=== PATIENT | female | born 1950 | race Caucasian/White ===

== ENCOUNTER 2018-05-29 19:44 | Inpatient (IN) ==
[2018-05-29] MEDS ORDERED: Sod Chloride 0.9% Inj 1,000 ML IV.CONT SCH (20:00)
--- NOTE | 2018-05-29 20:07 | ED ---
HPI General Chief Complaint: Neuro Symptoms/Deficit Stated Complaint: Lft Side Facial Drip Time Seen by Provider: 05/29/18 19:53 Source: patient and EMS Mode of arrival: EMS Limitations: no limitations History of Present Illness Onset (ago): hour(s) (5+) Time: 20:00 Last Observed Normal: 14:15 Timing confirmed by: other (patient--spoke with friend by phone 2:15; spoke with 3:15 he complained of her having slurred speech) Location: speech and left face (facial droop) History of same: No Severity: moderate Quality: weak (facial droop) Relieving factors: none Exacerbating factors: none Context: sudden onset (onset while driving alone in car from [place] to [place]) On Anticoagulants: Yes (plavix aspirin) Associated symptoms: denies other symptoms Treatments Prior to Arrival: none Related Data Home Medications Medication Instructions Recorded Confirmed carvedilol 6.25 mg PO BID 05/29/18 05/29/18 clopidogrel [Plavix] 75 mg PO DAILY 05/29/18 05/29/18 diclofenac sodium [Voltaren] 1 applic TOPICAL DAILY 05/29/18 05/29/18 diphenoxylate-atropine [Lomotil] 1 tab PO Q6-8H PRN 05/29/18 05/29/18 escitalopram oxalate 10 mg PO DAILY 05/29/18 05/29/18 glimepiride 4 mg PO QAM 05/29/18 05/29/18 insulin aspart U-100 [Novolog 1 sliding scale dose SUB-Q UD 05/29/18 05/29/18 U-100 Insulin aspart] insulin glargine [Lantus U-100 50 unit SUB-Q DAILY 05/29/18 05/29/18 Insulin] levocetirizine 5 mg PO DAILY 05/29/18 05/29/18 lorazepam 1 tab PO DAILY 05/29/18 05/29/18 simvastatin 40 mg PO QPM 05/29/18 05/29/18 Allergies Allergy/AdvReac Type Severity Reaction Status Date / Time No Known Allergies Allergy Unverified 05/29/18 19:55 Review of Systems ROS: all other systems reviewed are negative PMFSH History History Provided By: Patient (diabetes; cad w/ 4vss bypass) Medical History Medical History Hx of diabetes mellitus (Acute) Surgical History Surgical History Hx of heart bypass surgery (Acute) Social History Social History Substance History: No History of Abuse Smoking Status: Never smoker How Often Do You Have a Drink Containing Alcohol: Never Recent Travel in [facility] within the Last 8 Weeks: No Recent Out of Country Travel within the Last 8 Weeks: No Immunization History Tetanus Immunization: <5 Years Hx Influenza Vaccine This Season: No Exam Narrative Exam Narrative: GENERAL: Well-developed well-nourished female in no acute distress no respiratory distress GCS 15 SKIN: Focused skin assessment warm/dry. HEAD: Atraumatic. Normocephalic. EYES: Pupils equal and round. No scleral icterus. No injection or drainage. ENT: No nasal bleeding or discharge. Mucous membranes pink and moist. Left facial droop. NECK: Trachea midline. No JVD. CARDIOVASCULAR: Regular rate and rhythm. No murmur appreciated. RESPIRATORY: No accessory muscle use. Clear to auscultation. Breath sounds equal bilaterally. GASTROINTESTINAL: Abdomen soft, non-tender, nondistended. Hepatic and splenic margins not palpable. MUSCULOSKELETAL: No obvious deformities. No clubbing. No cyanosis. No edema. NEUROLOGICAL: Awake and alert. No obvious cranial nerve deficits left facial droop. Motor grossly within normal limits. No pronator drift. No limb ataxia. Mild slurring of speech. PSYCHIATRIC: Appropriate mood and affect; insight and judgment normal. Course Consultations Consultation #1: discussed with retail parts professional Neurologist Dr Castellano --not tpa candidate --does not recommend cta or stat mr --will see in consultation change to aspirin 81 to 325 Initial Documented Vital Signs Temperature 97.9 F 05/29/18 19:50 Pulse Rate 80 05/29/18 19:50 Respiratory Rate 05/29/18 19:50 Blood Pressure 120/74 05/29/18 19:50 Pulse Oximetry 97 05/29/18 19:50 Last Documented Vital Signs Temperature 97.9 F 05/29/18 19:50 Pulse Rate 80 05/29/18 19:50 Respiratory Rate 17 05/29/18 19:50 Blood Pressure 120/74 05/29/18 19:50 Pulse Oximetry 97 05/29/18 19:57 NIH Stroke Scale NIH Stroke Scale Level of Consciousness: 0-Alert Orientation Questions: 0-Answers both correct Responds to Commands: 0-Both tasks correct Gaze Eye Movement: 0-Horizontal movement WNL Visual [place]: 0-No visual field defect Facial Movement: 2-Partial facial palsy Motor Functions Arm LEFT: 0-No drift Motor Functions Arm RIGHT: 0-No drift Motor Functions Leg LEFT: 0-No drift Motor Functions Leg RIGHT: 0-No drift Limb Ataxia: 0-No ataxia Sensory Loss: 0-No sensory loss Best Language: 0-Normal Articulation: 1-Mild dysarthia Extinction or Inattention Sensory: 0-Absent Total: 3 Medical Decision Making MDM Narrative Medical decision making narrative: 67 year old female with left facial droop and slurred speech since sometime after 2:15 pm ( normal speech on phone with friend) and 3:10 pm (slurred speech per by phone) onset. At 8:15 has been present reports that he talk to her at 310 and noticed for the first time she had slurring of speech. He had spoken to her prior to this around 11 no speech abnormality noted at that time. CT brain noncontrast reveals no acute process per reading radiologist chest x- ray is unremarkable EKG is sinus rhythm rate [address] elevation injury pattern or ectopy noted age-indeterminate anterior infarct; lab values grossly within normal range except for random glucose of 142 and troponin I of 0.07 which is elevated. Patient denies any chest pain shortness of breath sweats nausea vomiting referred neck jaw back shoulder arm pain. Call placed to medicine service for admission, discussed with Dr. Prado. Medical Screen Exam Complete: Yes Emergency Medical Condition: Yes Differential Diagnosis Differential Diagnosis: CVA, TIA, Arenas's palsy, arrhythmia, uncontrolled diabetes, acs Medical Records Medical records reviewed: Yes I reviewed the patient's medical records. none prior Lab Data Lab results reviewed: Yes I reviewed the patient's lab results. Result diagrams: 05/29/18 20:20 05/29/18 20:20 Lab Results 05/29/18 05/29/18 05/29/18 Range/Units 19:57 20:00 20:20 CBC w Diff Auto diff final WBC 6.1 (4.0-11.0) th/mm3 RBC 4.54 (4.00-5.30) mil/mm3 Hgb 12.3 (11.6-15.3) gm/dL Hct 37.5 (35.0-46.0) % MCV 82.6 (80.0-100.0) fL MCH 27.0 (27.0-34.0) pg MCHC 32.7 (32.0-36.0) % RDW 14.4 (11.6-17.2) % Plt Count 317 (150-450) th/mm3 MPV 9.1 (7.0-11.0) fL Neut % (Auto) 65.2 (16.0-70.0) % Lymph % (Auto) 26.2 (9.0-44.0) % [place] % (Auto) 6.4 (0.0-8.0) % Eos % (Auto) 1.5 (0.0-4.0) % Baso % (Auto) 0.7 (0.0-2.0) % Neut # (Auto) 4.0 (1.8-7.7) th/mm3 Lymph # (Auto) 1.6 (1.0-4.8) th/mm3 [place] # (Auto) 0.4 (0.0-0.9) th/mm3 Eos # (Auto) 0.1 (0.0-0.4) th/mm3 Baso # (Auto) 0.0 (0.0-0.2) th/mm3 WBC Differential . Differential Comment . PT (9.8-11.6) sec INR Ratio APTT (24.3-30.1) sec Sodium (136-145) meq/L Potassium (3.5-5.1) meq/L Chloride (98-107) meq/L Carbon Dioxide (21.0-32.0) meq/L Anion Gap (5-15) meq/L BUN (7-18) mg/dL Creatinine (0.50-1.00) mg/dL Estimated GFR (>89) mL/min POC Glucose 161 H (68-110) mg/dl Random Glucose (74-106) mg/dL Calcium (8.5-10.1) mg/dL Total Creatine Kinase (26-192) U/L CK-MB (CK-2) (0.5-3.6) ng/mL Troponin I (0.02-0.05) ng/mL Urine Color Yellow (Yellw/Straw) Urine Clarity Clear (Clear) Urine pH 5.5 (5.0-8.5) Ur Specific [place] Less/equal 1.005 (1.002-1.035) Urine Protein Trace (Neg-Trace) mg/dL Urine Glucose (UA) 1000 or greater H (Negative) mg/dL Urine Ketones Negative (Negative) mg/dL Urine Occult Blood Trace (Negative) Urine Nitrate Negative (Negative) Urine Bilirubin Negative (Negative) Urine Urobilinogen 0.2 (Less than 2) mg/dL Ur Leukocyte Esterase Negative (Negative) Urine WBC 0-5 (0-5) /hpf Ur Squamous Epith Cells 0-5 (0-5) /hpf Micro UA Comment Culture not ind Ur Microscopic Review Microscopic reviewed Urine Culture Comments Culture not ind 05/29/18 05/29/18 05/29/18 Range/Units 20:20 20:20 21:25 CBC w Diff WBC (4.0-11.0) th/mm3 RBC (4.00-5.30) mil/mm3 Hgb (11.6-15.3) gm/dL Hct (35.0-46.0) % MCV (80.0-100.0) fL MCH (27.0-34.0) pg MCHC (32.0-36.0) % RDW (11.6-17.2) % Plt Count (150-450) th/mm3 MPV (7.0-11.0) fL Neut % (Auto) (16.0-70.0) % Lymph % (Auto) (9.0-44.0) % [place] % (Auto) (0.0-8.0) % Eos % (Auto) (0.0-4.0) % Baso % (Auto) (0.0-2.0) % Neut # (Auto) (1.8-7.7) th/mm3 Lymph # (Auto) (1.0-4.8) th/mm3 [place] # (Auto) (0.0-0.9) th/mm3 Eos # (Auto) (0.0-0.4) th/mm3 Baso # (Auto) (0.0-0.2) th/mm3 WBC Differential Differential Comment PT 9.4 L (9.8-11.6) sec INR 0.9 Ratio APTT 23.7 L (24.3-30.1) sec Sodium 140 (136-145) meq/L Potassium 3.6 (3.5-5.1) meq/L Chloride 107 (98-107) meq/L Carbon Dioxide 23.7 (21.0-32.0) meq/L Anion Gap 9 (5-15) meq/L BUN 15 (7-18) mg/dL Creatinine 0.97 (0.50-1.00) mg/dL Estimated GFR 58 L (>89) mL/min POC Glucose 62 L (68-110) mg/dl Random Glucose 142 H (74-106) mg/dL Calcium 8.7 (8.5-10.1) mg/dL Total Creatine Kinase 105 (26-192) U/L CK-MB (CK-2) 1.6 (0.5-3.6) ng/mL Troponin I 0.07 H (0.02-0.05) ng/mL Urine Color (Yellw/Straw) Urine Clarity (Clear) Urine pH (5.0-8.5) Ur Specific [place] (1.002-1.035) Urine Protein (Neg-Trace) mg/dL Urine Glucose (UA) (Negative) mg/dL Urine Ketones (Negative) mg/dL Urine Occult Blood (Negative) Urine Nitrate (Negative) Urine Bilirubin (Negative) Urine Urobilinogen (Less than 2) mg/dL Ur Leukocyte Esterase (Negative) Urine WBC (0-5) /hpf Ur Squamous Epith Cells (0-5) /hpf Micro UA Comment Ur Microscopic Review Urine Culture Comments Imaging Data Radiologist's impression: Chest X-Ray 05/29/18 19:57 CONCLUSION: No acute cardiopulmonary disease. Head CT 05/29/18 19:57 CONCLUSION: Unremarkable study. . ECG Data EKG Prior to Arrival: No Prior ECG tracings: not available for review Interpretation: EKG normal sinus rhythm rate [address] elevation injury pattern or ectopy noted; no comparison EKG Discharge Plan Discharge Disposition Patient Disposition: 30 Still Patient Discharge Condition Condition: Stable Discharge Details Diagnosis: CVA (cerebrovascular accident), Elevated troponin I level Physicians Team ED Provider: Crys Burks Primary Care Provider: Primary Care GarrickiArleen Rxs /Orders / Referrals /Forms Prescriptions: No Action carvedilol 6.25 mg Tablet 6.25 mg PO BID RF: 0 clopidogrel [Plavix] 75 mg Tablet 75 mg PO DAILY RF: 0 lorazepam 0.5 mg Tablet 1 tab PO DAILY RF: 0 insulin glargine [Lantus U-100 Insulin] 100 unit/mL Solution 50 unit SUB-Q DAILY RF: 0 diphenoxylate-atropine [Lomotil] 2.5-0.025 mg Tablet 1 tab PO Q6-8H PRN (Reason: Diarrhea) RF: 0 simvastatin 40 mg Tablet 40 mg PO QPM RF: 0 insulin aspart U-100 [Novolog U-100 Insulin aspart] 100 unit/mL Solution 1 sliding scale dose SUB-Q UD RF: 0 glimepiride 4 mg Tablet 4 mg PO QAM RF: 0 escitalopram oxalate 10 mg Tablet 10 mg PO DAILY RF: 0 levocetirizine 5 mg Tablet 5 mg PO DAILY RF: 0 diclofenac sodium [Voltaren] 1 % Gel 1 applic Topical DAILY RF: 0 Status ED Status: With Doctor
--- NOTE | 2018-05-29 20:26 | CT ---
EXAM DATE: 05/29/2018 8:18 PM EDT AGE/SEX: 67 years / Female INDICATIONS: Left sided facial droop, slurred speech. Symptoms started around 15:00 today. CLINICAL DATA: This is the patient's initial encounter. Patient reports that signs and symptoms have been present for 1 day and indicates a pain score of 0/10. MEDICAL/SURGICAL HISTORY: Diabetes. CABG. RADIATION DOSE: 58.85 CTDI (mGy) COMPARISON: No prior exams available for comparison. TECHNIQUE: CT of the head without contrast. Using automated exposure control and adjustment of the mA and/or kV according to patient size, radiation dose was kept as low as reasonably achievable to ob tain optimal diagnostic quality images. DICOM format image data is available electronically for revi ew and comparison. FINDINGS: There is no evidence for intracranial hemorrhage, mass effect, mass lesions, edema, or extra-axial fl uid collections. The visualized bony structures appear intact. The ventricles are normal size for t he patient's age. There are no signs of acute infarction for technique. CONCLUSION: Unremarkable study. . Electronically signed by: Jaime Todd MD 05/29/2018 8:25 PM EDT
[2018-05-29] MEDS ORDERED: Aspirin 325 MG Tablet PO ONE (20:28)
[2018-05-29 20:37] LABS: Baso % (Auto) 0.7 % (0.0-2.0); Eos # (Auto) 0.1 th/mm3 (0.0-0.4); Eos % (Auto) 1.5 % (0.0-4.0); Hematocrit 37.5 % (35.0-46.0); Hemoglobin 12.3 gm/dL (11.6-15.3); Lymph # (Auto) 1.6 th/mm3 (1.0-4.8); Lymph % (Auto) 26.2 % (9.0-44.0); Mean Corpuscular HGB Conc 32.7 % (32.0-36.0); Mean Corpuscular Volume 82.6 fL (80.0-100.0); Mean Platelet Volume 9.1 fL (7.0-11.0); Mono # (Auto) 0.4 th/mm3 (0.0-0.9); Mono % (Auto) 6.4 % (0.0-8.0); Neut % (Auto) 65.2 % (16.0-70.0); Platelet Count 317 th/mm3 (150-450); Red Blood Count 4.54 mil/mm3 (4.00-5.30); Red Cell Distribution Width 14.4 % (11.6-17.2); White Blood Count 6.1 th/mm3 (4.0-11.0)
[2018-05-29 20:38] LABS: Bilirubin,Urine Negative (Negative); Clarity,Urine Clear (Clear); Color,Urine Yellow (Yellw/Straw); Leukocyte Esterase,Urine Negative (Negative); Nitrite,Urine Negative (Negative); PH,Urine 5.5 (5.0-8.5); Specific Gravity,Urine Less/Equal 1.005 (1.002-1.035); Urobilinogen,Urine 0.2 mg/dL (Less than 2)
[2018-05-29 20:47] LABS: Squamous Epithelial Cell,Urine 0-5 /hpf (0-5); WBC,Urine 0-5 /hpf (0-5)
[2018-05-29 20:51] LABS: Chloride 107 meq/L (98-107); Potassium 3.6 meq/L (3.5-5.1); Sodium 140 meq/L (136-145)
[2018-05-29 20:54] LABS: Anion Gap 9 meq/L (5-15); Blood Urea Nitrogen 15 mg/dL (7-18); Calcium 8.7 mg/dL (8.5-10.1); Carbon Dioxide 23.7 meq/L (21.0-32.0); Glucose,Random 142 mg/dL (74-106)
[2018-05-29 20:57] LABS: Activated Partial Thrombo Time 23.7 sec (24.3-30.1); INR 0.9 Ratio; Prothrombin Time 9.4 sec (9.8-11.6)
--- NOTE | 2018-05-29 20:57 | XR ---
EXAM DATE: 05/29/2018 8:49 PM EDT AGE/SEX: 67 years / Female INDICATIONS: Cough. CLINICAL DATA: This is the patient's initial encounter. Patient reports that signs and symptoms have been present for 1 day and indicates a pain score of 0/10. MEDICAL/SURGICAL HISTORY: . Diabetes. CABG. COMPARISON: No prior exams available for comparison. FINDINGS: The lungs are clear without infiltrate, nodule, or mass. There is no appreciable pleural effusion for technique. Heart and mediastinum are unremarkable. There is evidence for prior median sternotomy. CONCLUSION: No acute cardiopulmonary disease. Electronically signed by: Jaime Todd MD 05/29/2018 8:56 PM EDT
[2018-05-29 20:58] LABS: Glomerular Filtration Rate 58 mL/min (>89)
[2018-05-29 21:01] LABS: Creatine Kinase 105 U/L (26-192)
[2018-05-29 21:02] LABS: Troponin I 0.07 ng/mL (0.02-0.05)
[2018-05-29 21:13] LABS: Creatine Kinase MB 1.6 ng/mL (0.5-3.6)
[2018-05-29] MEDS ORDERED: Dextrose 50% in Water 50 ML Vial IV.PUSH PRN (21:44)
--- NOTE | 2018-05-30 09:59 | MR ---
EXAM DATE: 05/30/2018 9:50 AM EDT AGE/SEX: 67 years / Female INDICATIONS: CVA. Slurred speech. Left facial droop. CLINICAL DATA: This is the patient's initial encounter. Patient reports that signs and symptoms have been present for 1 day and indicates a pain score of 0/10. MEDICAL/SURGICAL HISTORY: Cardiovascular disease. Diabetes mellitus type II. CABG. Coronary a rtery stent. COMPARISON: [facility], MR HEAD W/O CONTRAST, 05/30/2018. [facility], CT HEAD W/O CONTRAST, 05/29/2018. . TECHNIQUE: 3D [id number] MRA was performed. Source images, multiplanar STS MIP, and 3D volum e MIP reconstructions were reviewed. FINDINGS: There is excellent visualization of the major intracranial arteries out to the second-order branch ve ssels. There is no evidence for aneurysm, vessel truncation or stenosis, and no evidence for vascula r malformation. CONCLUSION: 1. Negative MRA [place] ([place]) non contrast. Electronically signed by: Dylan Melton MD 05/30/2018 9:58 AM EDT
--- NOTE | 2018-05-30 09:59 | MR ---
EXAM DATE: 05/30/2018 9:50 AM EDT AGE/SEX: 67 years / Female INDICATIONS: CVA. Left facial droop. Slurred speech. CLINICAL DATA: This is the patient's initial encounter. Patient reports that signs and symptoms have been present for 1 day and indicates a pain score of 0/10. MEDICAL/SURGICAL HISTORY: Cardiovascular disease. Diabetes mellitus type II. CABG. Coronary a rtery stent. COMPARISON: [facility], MRA HEAD W/O CONTRAST, 05/30/2018. [facility], CT HEAD W/O CONTRAST, 05/29/2018. . TECHNIQUE: Multiplanar, multisequence examination of the brain was performed without contrast. FINDINGS: Diffusion weighted images demonstrate abnormal diffusion hyperintensity in the right frontal cortex. There is corresponding increased FLAIR signal. This is characteristic of an area of acute infarction. There are scattered foci of increased FLAIR signal in the periventricular white matter and bilateral centrum semiovale most characteristic of chronic microvascular ischemic disease. There is no intracr anial hemorrhage or mass. CONCLUSION: 1. Right frontal infarct. Electronically signed by: Dylan Melton MD 05/30/2018 9:58 AM EDT
[2018-05-30] MEDS: Insulin NovoLOG Aspart Correctional Sugar Inj SQ SCH ×4 (10:07→21:12)
--- NOTE | 2018-05-30 10:14 | P.HP ---
History of Present Illness Primary Care Physician: No Primary Care Physician Chief Complaint: Slurred speech, facial droop History of Present Illness: 67-year-old female with known history of heart disease, cardiac stenting, coronary bypass surgery who presented to the hospital because of acute neurological deficits. Patient states that she is driving down here from [facility] in order to stay in a condo, during her trip at approximately 315 she noticed that she was having some slurred speech and facial droop. She continue to drive down here and then approximately 5 PM once he got to the condo her gave her a aspirin, called the ambulance. Patient was brought to the emergency department for evaluation. Patient was outside the window for TPA administration. Patient was having slurred speech, left facial droop, numbness of the left hand. Patient denies any lower extremity involvement, denies any difficulty in walking, no visual deficits. Denies any headache. Patient initial CT was unremarkable. Patient was recommend admission for stroke workup. - Diagnosis (1) CVA (cerebrovascular accident) (2) Elevated troponin I level Inpatient Certification: I certify that the inpatient services were ordered in accordance with Medicare regulations governing the order. This includes certification that hospital inpatient services are reasonable and necessary and in the case of services not specified as inpatient-only under 42 CFR 419.22(n), that they are appropriately provided as inpatient services in accordance to with the 2-midnight benchmark under 43 CFR 412.3(e) Estimated Total Length of Stay (Days): 2 Plans for Post Hospital Care: Not yet determined Review of Systems All other systems reviewed negative except as stated in HPI Neurologic: Reports abnormal speech, Reports numbness PMFSH - History History Provided By: Patient - Medical History Medical History: Medical History (Last Updated 05/30/18 @ 09:52 by SONALI Lopez) History of diabetes mellitus History of heart disease Hyperlipidemia - Surgical History Surgical History: Surgical History (Last Updated 05/30/18 @ 09:52 by SONALI Lopez) History of cardiac catheterization History of coronary artery stent placement Hx of heart bypass surgery - Family History Family History: Family History (Last Updated 05/30/18 @ 09:54 by SONALI Lopez) Father History of congestive heart failure Mother History of diabetes mellitus - Tobacco History Second Hand Smoke Exposure: No Tobacco Use In Past 30 Days: No Smoking Status: Never smoker - Alcohol History How Often Do You Have a Drink Containing Alcohol: Monthly or less - Substance Use History Substance History: No History of Abuse - Travel History Recent Travel in the [place] Within the Last 8 Weeks: Yes Recent Travel Out of the Country Within the Last 8 Weeks: No - Immunization History Tetanus Immunization: <5 Years Hx Influenza Vaccine This Season: No Medications and Allergies Active Medications: Active Medications Aspirin (Aspirin) 325 mg PO DAILY DARRIAN Clopidogrel Bisulfate (Plavix) 75 mg PO DAILY [facility] Dextrose (D50w Vial) 50 ml IV.PUSH UNSCH PRN PRN Reason: PER HYPOGLYCEMIA PROTOCOL Enalaprilat (Vasotec Inj) 1.25 mg IV.PUSH Q4H PRN PRN Reason: For SBP > 220 or DBP > 120 Escitalopram Oxalate (Lexapro) 10 mg PO DAILY DARRIAN Glucagon (Glucagon Inj) 1 mg OTHER UNSCH PRN PRN Reason: for Hypoglycemia Protocol Sodium Chloride (Ns Inj) 1,000 mls @ 70 mls/hr IV.CONT .[id number] DARRIAN Stop: 05/30/18 10:17 Last Admin: 05/29/18 21:50 Dose: 70 mls/hr Insulin Aspart (Novolog Insulin Correctional Sugar Inj) 0 unit SQ ACHS DARRIAN; Protocol Non-Formulary Medication (Simvastatin [Simvastatin]) 40 mg PO QPM DARRIAN Pravastatin Sodium (Pravachol) 40 mg PO HS DARRIAN Sodium Chloride (Ns Flush) 2 ml IV.FLUSH BID DARRIAN Sodium Chloride (Ns Flush) 2 ml IV.FLUSH PRN PRN PRN Reason: FLUSH AFTER USING IV ACCESS Allergies Allergy/AdvReac Type Severity Reaction Status Date / Time No Known Allergies Allergy Unverified 05/29/18 19:55 Home Medications Medication Instructions Recorded Confirmed Type carvedilol 6.25 mg PO BID 05/29/18 05/29/18 History clopidogrel [Plavix] 75 mg PO DAILY 05/29/18 05/29/18 History diclofenac sodium [Voltaren] 1 applic TOPICAL DAILY 05/29/18 05/29/18 History diphenoxylate-atropine [Lomotil] 1 tab PO Q6-8H PRN 05/29/18 05/29/18 History escitalopram oxalate 10 mg PO DAILY 05/29/18 05/29/18 History glimepiride 4 mg PO QAM 05/29/18 05/29/18 History insulin aspart U-100 [Novolog 1 sliding scale dose SUB-Q UD 05/29/18 05/29/18 History U-100 Insulin aspart] insulin glargine [Lantus U-100 50 unit SUB-Q DAILY 05/29/18 05/29/18 History Insulin] levocetirizine 5 mg PO DAILY 05/29/18 05/29/18 History lorazepam 1 tab PO DAILY 05/29/18 05/29/18 History simvastatin 40 mg PO QPM 05/29/18 05/29/18 History Exam Vital signs: Vital Signs 05/29/18 19:50 05/29/18 19:57 05/29/18 21:30 Temperature 97.9 F Pulse Rate 80 78 Respiratory Rate 17 17 Blood Pressure 120/74 110/72 Pulse Oximetry 97 97 05/29/18 22:30 05/29/18 23:50 05/30/18 01:37 Temperature 96.8 F L Pulse Rate 82 81 74 Respiratory Rate 16 21 Blood Pressure 111/56 L 123/59 L Pulse Oximetry 98 96 05/30/18 04:00 05/30/18 07:28 Temperature 96.4 F L 97.3 F L Pulse Rate 82 83 Respiratory Rate 20 20 Blood Pressure 139/63 137/60 Pulse Oximetry 99 98 Intake & Output 05/29/18 05/30/18 05/30/18 18:59 06:59 18:59 Intake Total 0 / 0 Balance 0 / 0 Weight 86.8 kg Intake: Oral 0 / 0 Other: # Voids 2 Weight On Admission 86.6 kg Narrative: GENERAL: Well-developed, well-nourished, in no acute distress. alert and orientated HEENT: Head is normocephalic without any lesions or masses noted. Patient with obvious left facial droop. Eyes: Pupils equal round reactive to light. Extraocular muscles are intact. Conjunctivae were clear. Oropharyngeal: Pharynx without any erythema edema. Tongue is midline without deviation. Buccal mucosa is moist without any masses or lesions NECK: Supple without any masses. Trachea midline no deviation. No JVD, no bruits are appreciated CARDIAC: Regular rhythm, regular rate. S1/S2 are heard. No murmurs gallops or rubs. LUNGS: Clear to auscultation bilaterally. No wheeze, rhonchi or rales. No use of accessory muscles on inspiration or expiration. ABDOMEN: Soft, nontender. Nondistended. Bowel sounds heard in all 4 quadrants. No organomegaly or masses. Negative rebound, negative guarding EXTREMITIES: No edema, pulses are equal bilaterally. No cyanosis or clubbing NEUROLOGY: Mood and affect appear appropriate. Cranial nerves II through XII grossly intact. Muscle strength 5/5 in upper and lower extremities bilaterally. Deep tendon reflexes are 2+ in upper and lower extremities bilaterally. Speech is slurred Results - Labs CBC & Chem 7: 05/29/18 20:20 05/29/18 20:20 Labs: Laboratory Results - last 24 hr 05/29/18 05/29/18 05/29/18 19:57 20:00 20:20 CBC w Diff Auto diff final WBC 6.1 RBC 4.54 Hgb 12.3 Hct 37.5 MCV 82.6 MCH 27.0 MCHC 32.7 RDW 14.4 Plt Count 317 MPV 9.1 Neut % (Auto) 65.2 Lymph % (Auto) 26.2 Meagher % (Auto) 6.4 Eos % (Auto) 1.5 Baso % (Auto) 0.7 Neut # (Auto) 4.0 Lymph # (Auto) 1.6 Meagher # (Auto) 0.4 Eos # (Auto) 0.1 Baso # (Auto) 0.0 WBC Differential . Differential Comment . PT INR APTT Sodium Potassium Chloride Carbon Dioxide Anion Gap BUN Creatinine Estimated GFR POC Glucose 161 H Random Glucose Calcium Total Creatine Kinase CK-MB (CK-2) Troponin I Urine Color Yellow Urine Clarity Clear Urine pH 5.5 Ur Specific [place] Less/equal 1.005 Urine Protein Trace Urine Glucose (UA) 1000 or greater H Urine Ketones Negative Urine Occult Blood Trace Urine Nitrate Negative Urine Bilirubin Negative Urine Urobilinogen 0.2 Ur Leukocyte Esterase Negative Urine WBC 0-5 Ur Squamous Epith Cells 0-5 Micro UA Comment Culture not ind Ur Microscopic Review Microscopic reviewed Urine Culture Comments Culture not ind 05/29/18 05/29/18 05/29/18 20:20 20:20 21:25 CBC w Diff WBC RBC Hgb Hct MCV MCH MCHC RDW Plt Count MPV Neut % (Auto) Lymph % (Auto) Meagher % (Auto) Eos % (Auto) Baso % (Auto) Neut # (Auto) Lymph # (Auto) Meagher # (Auto) Eos # (Auto) Baso # (Auto) WBC Differential Differential Comment PT 9.4 L INR 0.9 APTT 23.7 L Sodium 140 Potassium 3.6 Chloride 107 Carbon Dioxide 23.7 Anion Gap 9 BUN 15 Creatinine 0.97 Estimated GFR 58 L POC Glucose 62 L Random Glucose 142 H Calcium 8.7 Total Creatine Kinase 105 CK-MB (CK-2) 1.6 Troponin I 0.07 H Urine Color Urine Clarity Urine pH Ur Specific [place] Urine Protein Urine Glucose (UA) Urine Ketones Urine Occult Blood Urine Nitrate Urine Bilirubin Urine Urobilinogen Ur Leukocyte Esterase Urine WBC Ur Squamous Epith Cells Micro UA Comment Ur Microscopic Review Urine Culture Comments 05/29/18 05/30/18 05/30/18 22:17 00:44 05:40 CBC w Diff WBC RBC Hgb Hct MCV MCH MCHC RDW Plt Count MPV Neut % (Auto) Lymph % (Auto) Meagher % (Auto) Eos % (Auto) Baso % (Auto) Neut # (Auto) Lymph # (Auto) Meagher # (Auto) Eos # (Auto) Baso # (Auto) WBC Differential Differential Comment PT INR APTT Sodium Potassium Chloride Carbon Dioxide Anion Gap BUN Creatinine Estimated GFR POC Glucose 107 Random Glucose Calcium Total Creatine Kinase CK-MB (CK-2) Troponin I 0.08 H 0.07 H Urine Color Urine Clarity Urine pH Ur Specific [place] Urine Protein Urine Glucose (UA) Urine Ketones Urine Occult Blood Urine Nitrate Urine Bilirubin Urine Urobilinogen Ur Leukocyte Esterase Urine WBC Ur Squamous Epith Cells Micro UA Comment Ur Microscopic Review Urine Culture Comments - Imaging Impressions Chest X-Ray 05/29/18 19:57 CONCLUSION: No acute cardiopulmonary disease. Head CT 05/29/18 19:57 CONCLUSION: Unremarkable study. . Head MRI 05/30/18 21:45 CONCLUSION: 1. Right frontal infarct. Head MRA 05/30/18 21:45 CONCLUSION: 1. Negative MRA Cow ([place]) non contrast. Caprini VTE Risk Assessment Caprini VTE Risk Assessment: Moderate/High Risk (score >= 2) Caprini Risk Assessment Model: Point Value = 1 Point Value = 2 Point Value = 3 Point Value = 5 Age 41-60 Minor surgery BMI > 25 kg/m2 Swollen legs Varicose veins or History of unexplained or recurrent spontaneous Oral contraceptives or hormone replacement Sepsis (< 1 month) Serious lung disease, including pneumonia (< 1 month) Abnormal pulmonary function Acute myocardial infarction Congestive heart failure (< 1 month) History of inflammatory bowel disease Medical patient at bed rest Age 61-74 Arthroscopic surgery Major open surgery (> 45 min) Laparoscopic surgery (> 45 min) Malignancy Confined to bed (> 72 hours) Immobilizing plaster cast Central venous access Age >= 75 History of VTE Family history of VTE Factor V Leiden Prothrombin [id number] Lupus anticoagulant Anticardiolipin antibodies Elevated serum homocysteine Heparin-induced thrombocytopenia Other congenital or acquired thrombophilia Stroke (< 1 month) Elective arthroplasty Hip, pelvis, or leg fracture Acute spinal cord injury (< 1 month) Prophylaxis Regimen: Total Risk Factor Score Risk Level Prophylaxis Regimen 0-1 Low Early ambulation 2 Moderate Order ONE of the following: *Sequential Compression Device (SCD) *Heparin 5000 units SQ BID 3-4 Higher Order ONE of the following medications: *Heparin 5000 units SQ TID *Enoxaparin/Lovenox 40 mg SQ daily (WT < 150 kg, CrCl > 30 mL/min) *Enoxaparin/Lovenox 30 mg SQ daily (WT < 150 kg, CrCl > 10-29 mL/min) *Enoxaparin/Lovenox 30 mg SQ BID (WT < 150 kg, CrCl > 30 mL/min) AND/OR *Sequential Compression Device (SCD) 5 or more Highest Order ONE of the following medications: *Heparin 5000 units SQ TID (Preferred with Epidurals) *Enoxaparin/Lovenox 40 mg SQ daily (WT < 150 kg, CrCl > 30 mL/min) *Enoxaparin/Lovenox 30 mg SQ daily (WT < 150 kg, CrCl > 10-29 mL/min) *Enoxaparin/Lovenox 30 mg SQ BID (WT < 150 kg, CrCl > 30 mL/min) AND *Sequential Compression Device (SCD) Assessment and Plan - Assessment (1) CVA (cerebrovascular accident) Code(s): I63.9 - Cerebral infarction, unspecified Status: Acute (2) Elevated troponin I level Code(s): R74.8 - Abnormal levels of other serum enzymes Status: Acute - Plan Acute cerebrovascular accident -Patient presented with neurological deficits of facial droop, slurred speech, left hand numbness -Patient was out of the range for any TPA administration -CT scan was unremarkable for any acute abnormality -Awaiting MRI, MRA of the brain, carotid ultrasound, echocardiogram -Further laboratory studies to include B12, folate, sed rate, TSH, lipid panel, hemoglobin A1c -Patient is already on Plavix, we will continue that with the addition of full dose aspirin -Obtain PT/OT/ST evaluations -Neurology consultation has been requested Elevated troponin -Could be demand ischemia from acute CVA, However patient does have history of coronary disease status post stenting and carotid bypass surgery. Patient is asymptomatic. Denies any chest pain, nausea, vomiting, diaphoresis, shortness of breath, dyspnea. -Patient cardiac enzymes were trended and appears to have plateaued with equivocal troponins of 0.08 -Initial EKG was reviewed by myself did show sinus rhythm with possible anterior myocardial infarction. Follow-up EKG shows sinus rhythm without any changes -Awaiting echocardiogram report -Patient is on aspirin, Plavix, statin, beta-stephenie -Myocardial perfusion study was performed and indicated Coronary artery disease, heart disease -Home medications have been continued DVT prevention -Sequential compression devices Discussed Condition With: Discussed with patient, nursing staff, Dr. Castellano neurology
[2018-05-30] MEDS: Escitalopram 10 MG Tablet PO SCH (10:31)
[2018-05-30] MEDS: Aspirin 325 MG Tablet PO SCH (10:31)
[2018-05-30] MEDS: Carvedilol 6.25 MG Tablet PO SCH ×2 (12:01→21:13)
[2018-05-30 12:04] LABS: Chol/HDL Ratio 3.56 Ratio; Folate 8.9 ng/mL (3.1-17.5); HDL Cholesterol 44.9 mg/dL (40.0-60.0)
[2018-05-30] MEDS ORDERED: Regadenoson Inj 0.4 MG/5 ML Syringe IV.PUSH ONE (12:52)
[2018-05-30 13:10] LABS: Hemoglobin A1c 9.6 % (4.3-6.0)
--- NOTE | 2018-05-30 13:43 | MB ---
cc: Elier Castellano MD, PhD DATE: 05/30/2018 REASON FOR CONSULTATION: Stroke. HISTORY OF PRESENT ILLNESS: Ms. Nevarez is a pleasant 67-year-old female with a history of coronary artery disease, diabetes and hypertension, who was driving down from [place], [place] yesterday, had sudden onset of slurring of her speech and left facial droop. She had some numbness in the arm and hand, as well. She presented to the emergency room. I spoke with Dr. Burks. By the time she got to the ER, she was out of the window for IV tPA. Given her minimal symptomatology, I felt that she was not a candidate for evaluation for interventional therapy. She normally takes Plavix 75 mg daily and aspirin 81 mg daily. I recommended increasing her aspirin dose to 325 mg daily. She did not have any atrial fibrillation. PAST MEDICAL HISTORY: She has history of diabetes, coronary artery disease with CABG procedure, coronary stents, hypertension. CURRENT MEDICATIONS: 1. Aspirin now changed to 325 mg daily. 2. Carvedilol 6.25 mg b.i.d. 3. Plavix 75 mg daily. 4. Vasotec p.r.n. 5. Lexapro 10 mg daily. 6. Insulin p.r.n. 7. Pravastatin 80 mg daily. PHYSICAL EXAMINATION: VITAL SIGNS: Blood pressure is 137/60, pulse 83, respiratory rate is 20, temperature 97 degrees. HIGHER CORTICAL FUNCTION: She is alert and oriented. Speech is very dysarthric, but not aphasic. CRANIAL NERVES: There is a left upper motor neuron VII palsy. Other cranial nerves are normal. Motor exam is 5/5, strength in all muscle groups in both upper and lower extremities. There is no drift. Fine motor skills normal. Reflexes are symmetric. Sensory exam is intact. CT scan of the brain is normal. MRI brain: There is an area of abnormal diffusion in the right frontal cortex consistent with an acute stroke. There is no hemorrhage present. MRA of the brain is normal. EKG normal sinus rhythm. LABORATORY DATA: The white count is 6100, hemoglobin 12.3, hematocrit 37.5%, platelet count 317,000. PT 9.4, INR 0.9, APTT 23.7. Sodium is 140, potassium 3.6, chloride 107, BUN is 15, creatinine 0.97, glucose 107. Troponin 0.08. Lipid panel pending. IMPRESSION: Right frontal stroke. RECOMMENDATIONS: Continue Plavix and aspirin 325 mg daily. Follow up on carotid ultrasound, echocardiogram and lipid panel. If no etiology of the stroke is identified, recommend outpatient evaluation by cardiology to consider a loop recorder. Recommend OT, PT, and speech therapy. Elier Castellano MD, PhD SADIA/yessenia , 10:25 AM , 10:32 AM
--- NOTE | 2018-05-30 14:10 | NM ---
EXAM DATE: 05/30/2018 2:00 PM EDT AGE/SEX: 67 years / Female INDICATIONS:Coronary artery disease. Abnormal EKG CVA. CLINICAL DATA: This is the patient's initial encounter. Patient reports that signs and symptoms have been present for 1 day and indicates a pain score of 0/10. MEDICAL/SURGICAL HISTORY: Cardiovascular disease. Cerebrovascular disease. Diabetes mellitus type II. Angioplasty. CABG. COMPARISON: No prior exams available for comparison. DOSE: 8.5 mCi Tc 99m Myoview at rest 27.3 mCi [id number] at stress 0.4 mg Lexiscan STRESS SYMPTOMS: Headache. EJECTION FRACTION: 57 % TECHNIQUE: The patient underwent pharmacologic stress with infusion of prescribed dose. Continuous ECG tracing was monitored during stress. Gated SPECT imaging was performed after stress and conventi onal SPECT imaging was performed at rest. The examination was performed on a SPECT/CT scanner, both attenuation and non-corrected datasets were reviewed. FINDINGS: Distribution: The maximum perfused segment at stress is in the septal wall. Perfusion Study: There is a small reversible perfusion defect at the mid lateral wall of mild sever ity. Gated Study: There are intact wall motion and wall thickening without hypokinetic or dyskinetic segm ents. The ejection fraction is calculated at 57%. RISK CATEGORY: Low (<1% Annual Motality Rate) CONCLUSION: 1. Small reversible perfusion defect identified of the lateral wall with normal ejection fraction an d wall motion. Electronically signed by: Dylan Melton MD 05/30/2018 2:09 PM EDT
--- NOTE | 2018-05-30 14:54 | US ---
EXAM DATE: 05/30/2018 2:51 PM EDT AGE/SEX: 67 years / Female INDICATIONS: Slurred speech and left facial droop. CLINICAL DATA: This is the patient's initial encounter. Patient reports that signs and symptoms have been present for 1 day and indicates a pain score of 0/10. MEDICAL/SURGICAL HISTORY: Cardiovascular disease. Diabetes. Hypercholesterolemia. Coronary ar fernando stent. CABG. COMPARISON: No prior exams available for comparison. VELOCITY PARAMETERS: ICA/CCA Ratio: Right 0.9 , Left 1.2 ICA: Right 81 cm/sec, Left 97 cm/sec CCA: Right 91 cm/sec, Left 81 cm/sec ECA: Right 78 cm/sec, Left 119 cm/sec Vertebral: Right 48 cm/sec antegrade, Left 61 cm/sec antegrade FINDINGS: Right Carotid: Mild arteriosclerotic plaque is visualized.The waveforms are within normal limits. Left Carotid: Mild arteriosclerotic plaque is visualized. The waveforms are within normal limits. Other: None. CONCLUSION: 1. Right Internal Carotid Artery: No significant stenosis or atherosclerotic plaque is visualized. 2. Left Internal Carotid Artery: No significant stenosis or atherosclerotic plaque is visualized. Electronically signed by: Dylan Melton MD 05/30/2018 2:53 PM EDT
--- NOTE | 2018-05-30 15:26 | ECG ---
Date Performed: 05/29/2018 Time Performed: 20:27:26 PTAGE: 67 years EKG: Sinus rhythm LOW QRS VOLTAGE IN PRECORDIAL LEADS Poor R wave progression across the precordium BORDERLINE ECG NO PREVIOUS TRACING DOCTOR: Jan Johns Interpretating Date/Time 05/30/2018 15:25:20
--- NOTE | 2018-05-30 15:27 | ECG ---
Date Performed: 05/30/2018 Time Performed: 10:42:30 PTAGE: 67 years EKG: Sinus rhythm LOW QRS VOLTAGE IN PRECORDIAL LEADS BORDERLINE ECG Compared to PREVIOUS TRACING , there is improvement in the voltage across the precordium, otherwise n o significant change. PREVIOUS TRACIN05/29/2018 20.27 DOCTOR: Jan Johns Interpretating Date/Time 05/30/2018 15:25:49
--- NOTE | 2018-05-30 16:06 | ECHRPT ---
Indication: CVA/TIA CONCLUSIONS The left ventricular systolic function is low normal with an estimated ejection fraction in the rang e of 50- 55%. Doppler parameters are consistent with impaired left ventricular relaxtion (grade 1 diastolic dysfun ction). Trace mitral valve regurgitation. There is trace tricuspid valve regurgitation. BP: / HR: Rhythm: MEASUREMENTS (Male / Female) Normal Values Technical Quality: 2D ECHO LV Diastolic Diameter PLAX 4.1 cm 4.2 - 5.9 / 3.9 - 5.3 cm LV Systolic Diameter PLAX 3.2 cm IVS Diastolic Thickness 0.9 cm 0.6 - 1.0 / 0.6 - 0.9 cm LVPW Diastolic Thickness 0.6 cm 0.6 - 1.0 / 0.6 - 0.9 cm LV Relative Wall Thickness 0.4 RV Internal Dim ED PLAX 1.8 cm LA Systolic Diameter LX 3.9 cm 3.0 - 4.0 / 2.7 - 3.8 cm M-MODE Aortic Root Diameter MM 2.5 cm AV Cusp Separation MM 1.7 cm DOPPLER Mitral E Point Velocity 77.7 cm/s Mitral A Point Velocity 86.4 cm/s Mitral E to A Ratio 0.9 TR Peak Velocity 254.0 cm/s TR Peak Gradient 25.8 mmHg Right Atrial Pressure 10.0 mmHg Pulmonary Artery Systolic Pressu 35.8 mmHg Right Ventricular Systolic Press 35.8 mmHg FINDINGS LEFT VENTRICLE Normal left ventricular size. Wall thickness is normal. The left ventricular systolic function is low normal with an estimated ejection fraction in the rang e of 50- 55%. Doppler parameters are consistent with impaired left ventricular relaxtion (grade 1 diastolic dysfun ction). RIGHT VENTRICLE Normal right ventricular size and systolic function. LEFT ATRIUM The left atrial size is mildly dilated. RIGHT ATRIUM The right atrial size is normal. ATRIAL SEPTUM Normal atrial septal thickness without atrial level shunting by limited color doppler interrogation. AORTA The aortic root and proximal ascending aorta are normal in size on limited imaging. MITRAL VALVE Structurally normal mitral valve. Trace mitral valve regurgitation. No mitral valve stenosis. AORTIC VALVE Trileaflet aortic valve. No aortic valve stenosis or regurgitation. TRICUSPID VALVE Structurally normal tricuspid valve. There is trace tricuspid valve regurgitation. The estimated pulmonary arterial pressure is 36 mmHg. PULMONARY VALVE No pulmonary valve regurgitation or stenosis. VESSELS The inferior vena cava is normal in size. PERICARDIUM No pericardial effusion. Kevin Lu DO (Electronically Signed) Final Date:30 May 2018 16:04
--- NOTE | 2018-05-30 19:34 | MB ---
cc: AlyWaldocarlene Murdock DO DATE: 05/30/2018 REASON FOR CONSULTATION: CVA, elevated troponin, abnormal stress test. HISTORY OF PRESENT ILLNESS: Dominique Nevarez is a pleasant 67-year-old female who is down visiting from [place], [place] and on the way down noted some slurred speech and facial droop. Apparently this happened around 3:15 on 05/29/[address] and she continued to drive and got here around 5 p.m. Her gave her an aspirin and called the ambulance. She was deemed to be outside the TPA window. During her workup she was noted to have minimally elevated troponins and underwent a stress test, which was read as small reversible perfusion defect on the lateral wall, low risk stress test. She was also seen by neurology, who recommended a loop recorder placement. In seeing her, she is hemodynamically stable and has had no episodes of chest pain, shortness of breath, or palpitations. She does still have left-sided facial droop with minimal slurred speech. Her only other neurological complaint was some numbness on the left outer portion of her arm in the wrist area. PAST MEDICAL HISTORY: 1. Coronary artery disease. 2. Diabetes mellitus. 3. Hyperlipidemia. PAST SURGICAL HISTORY: 1. Cardiac catheterization. 2. CABG x4. ALLERGIES: NO KNOWN DRUG ALLERGIES. MEDICATIONS: 1. Coreg 6.25 mg b.i.d. 2. Ativan 0.5 mg daily. 3. Plavix 75 mg daily. 4. Zocor 40 mg every night. 5. Levocetirizine 5 mg daily. 6. Glimepiride 4 mg every morning. 7. Lomotil every 6 hours as needed. 8. Voltaren topical gel. 9. Lantus 50 units daily. 10. Escitalopram 10 mg daily. 11. NovoLog sliding scale. FAMILY HISTORY: Denies sudden cardiac within the family. SOCIAL HISTORY: Denies tobacco, alcohol, or drug abuse. REVIEW OF SYSTEMS: Fourteen systems were reviewed, including osteopathic. Pertinent positives and negatives above, otherwise negative. PHYSICAL EXAMINATION: VITAL SIGNS: Temperature 96.5, heart rate 85, blood pressure 110/55, respirations 20, pulse oximetry 98% on room air. GENERAL: The patient appears well, in no acute distress. Alert, awake, and oriented x3. HEENT: Pupils are equal and round. Left-sided facial droop noted with minimal slurring of her speech. NECK: Supple. No JVD at 45 degrees. No carotid bruits heard bilaterally. Carotid upstroke is brisk in nature. HEART: Regular rate and rhythm. Positive first and second heart sounds with no noted murmurs, gallops or rubs. LUNGS: Clear to auscultation bilaterally. No wheezes, rales, or rhonchi. ABDOMEN: Soft, nontender, nondistended. No organomegaly noted. EXTREMITIES: Show no clubbing, cyanosis, or edema. Femoral and distal pulses are intact bilaterally. NEUROLOGIC: Left-sided facial droop, otherwise, no focal deficits. SKIN: Warm, dry, and intact. OSTEOPATHIC:. No kyphoscoliosis, lordosis, or paraspinal tender points. LABORATORY DATA: Hemoglobin 12.3, hematocrit 37.5, platelets 317. Potassium 3.6, BUN 15, creatinine 0.97, troponin 0.07. Total cholesterol 160, LDL 95, HDL 44.9, triglycerides 99. Electrocardiogram (05/30/2018 at 10:42): Sinus rhythm, low voltage QRS in precordial leads. Echocardiogram (05/30/2018): Ejection fraction 50-55%, stage I diastolic dysfunction, trace mitral and tricuspid regurgitation. IMPRESSION: 1. Right frontal cerebrovascular accident. 2. Minimally elevated troponins, most likely type 2 due to cerebrovascular accident. 3. Abnormal stress test read as possible small lateral wall perfusion defect. 4. Coronary artery disease with a history of coronary artery bypass grafting. 5. Ejection fraction of 50-55% with stage I diastolic dysfunction. RECOMMENDATIONS: 1. Ms. Nevarez presented with symptoms concerning for a CVA and was found to have a right frontal infarct on MRI. 2. She will continue to work with PT, OT, and speech therapy to try to help with her neurological deficits. 3. She did have a minimally elevated troponin. This is most likely secondary to her overall illness with her stroke. 4. She underwent stress testing which was read as a small lateral perfusion defect and a low risk stress test. Ultimately, we would treat this medically, but even with that, as she has had a recent stroke, would not plan on revascularization for 8 weeks. Lastly, in reviewing the imaging, it appears that it is both on stress and rest and I would consider this a possible infarcted territory, but ultimately the defect is very small in nature. 5. I did discuss with her consideration of NOVA and loop recorder for further diagnostics on her CVA. Overall, I agree with her that she will plan on going back to [place] and seeing her fractionation supervisor for further considerations, as anything that we found here would ultimately need to be taken care of up there. Thank you for allowing me to see Dominique Nevarez. If there are any questions, please call. Kevin Lu DO [facility]/ , 05:40 PM , 05:53 PM
[2018-05-31 01:31] VITALS: RESP 18
[2018-05-31 05:44] VITALS: PULSE 80
[2018-05-31] MEDS ORDERED: Acetaminophen 325 MG Tablet PO PRN (07:43)
[2018-05-31] MEDS: Carvedilol 6.25 MG Tablet PO SCH (08:05)
[2018-05-31] MEDS: Aspirin 325 MG Tablet PO SCH (08:05)
[2018-05-31] MEDS: Escitalopram 10 MG Tablet PO SCH (08:06)
[2018-05-31] MEDS: Insulin NovoLOG Aspart Correctional Sugar Inj SQ SCH (08:07)
[2018-05-31 10:10] VITALS: BP 106/57; TEMP 98.9; O2SAT 96
--- NOTE | 2018-05-31 10:50 | P.PN ---
Subjective Interval history: 67-year-old female who is seen and examined today for follow-up on acute CVA. Patient resting comfortably in bed. Still with left lip droop. Patient denies any new complaints. Patient is very eager to go home. Vital signs are stable, patient remains afebrile. Physical Exam Vital signs: Vital Signs 05/30/18 11:20 05/30/18 15:19 05/30/18 20:00 Temperature 97.7 F 96.5 F L 97.7 F Pulse Rate 84 85 97 H Respiratory Rate 20 20 16 Blood Pressure 160/78 H 110/55 L 125/73 Pulse Oximetry 98 98 99 05/30/18 21:00 05/31/18 00:00 05/31/18 04:00 Temperature 98.1 F 97.4 F L Pulse Rate 86 72 80 Respiratory Rate 18 18 Blood Pressure 101/53 L 106/70 Pulse Oximetry 97 98 05/31/18 08:00 Temperature 98.9 F Pulse Rate 80 Respiratory Rate 18 Blood Pressure 106/57 L Pulse Oximetry 96 Intake & Output 05/30/18 05/31/18 05/31/18 18:59 06:59 18:59 Intake Total 1480 / 1480 200 / 200 Balance 1480 / 1480 200 / 200 Intake: IV 1000 / 1000 Oral 480 / 480 200 / 200 Other: # Voids 3 2 # Bowel Movements 1 Narrative: GENERAL: Well-developed, well-nourished, in no acute distress. alert and orientated HEENT: Head is normocephalic without any lesions or masses noted. Patient with obvious left facial droop. Eyes:. Extraocular muscles are intact. Conjunctivae were clear. NECK: Supple without any masses. Trachea midline no deviation. No JVD, CARDIAC: Regular rhythm, regular rate. S1/S2 are heard. No murmurs gallops or rubs. LUNGS: Clear to auscultation bilaterally. No wheeze, rhonchi or rales. No use of accessory muscles on inspiration or expiration. ABDOMEN: Soft, nontender. Nondistended. Bowel sounds heard in all 4 quadrants. No organomegaly or masses. Negative rebound, negative guarding EXTREMITIES: No edema, pulses are equal bilaterally. No cyanosis or clubbing NEUROLOGY: Mood and affect appear appropriate. Moving all extremities, speech is clear Results - Labs CBC & Chem 7: 05/29/18 20:20 05/29/18 20:20 Laboratory Results - last 24 hr 05/30/18 05/30/18 05/30/18 05:40 05:40 11:51 POC Glucose 63 L Hemoglobin A1c 9.6 H Triglycerides 99 Cholesterol 160 LDL Cholesterol, Calc 95 HDL Cholesterol 44.9 Cholesterol/HDL Ratio 3.56 Vitamin B12 323 Folate 8.9 05/30/18 05/30/18 05/30/18 12:22 17:53 21:07 POC Glucose 144 H 260 H 210 H Hemoglobin A1c Triglycerides Cholesterol LDL Cholesterol, Calc HDL Cholesterol Cholesterol/HDL Ratio Vitamin B12 Folate 05/31/18 07:45 POC Glucose 104 Hemoglobin A1c Triglycerides Cholesterol LDL Cholesterol, Calc HDL Cholesterol Cholesterol/HDL Ratio Vitamin B12 Folate - Imaging Impressions Carotid Doppler Study 05/30/18 00:00 CONCLUSION: 1. Right Internal Carotid Artery: No significant stenosis or atherosclerotic plaque is visualized. 2. Left Internal Carotid Artery: No significant stenosis or atherosclerotic plaque is visualized. Myocardial Perfusion Scan Nuc Med 05/30/18 10:26 CONCLUSION: 1. Small reversible perfusion defect identified of the lateral wall with normal ejection fraction and wall motion. - Procedures ECHOCARDIOGRAM CONCLUSIONS The left ventricular systolic function is low normal with an estimated ejection fraction in the range of 50- 55%. Doppler parameters are consistent with impaired left ventricular relaxtion ( grade 1 diastolic dysfunction). Trace mitral valve regurgitation. There is trace tricuspid valve regurgitation. Assessment and Plan - Assessment (1) CVA (cerebrovascular accident) Code(s): I63.9 - Cerebral infarction, unspecified Status: Acute (2) Elevated troponin I level Code(s): R74.8 - Abnormal levels of other serum enzymes Status: Acute - Plan Acute cerebrovascular accident -Patient presented with neurological deficits of facial droop, slurred speech, left hand numbness -Patient was out of the range for any TPA administration -CT scan was unremarkable for any acute abnormality -MRI the brain does show a right frontal acute infarct -MRA, carotid ultrasound were unremarkable for any acute etiology -Echocardiogram: Results as above -Further laboratory studies to include B12, folate, sed rate, TSH, were unremarkable -Patient to continue Plavix and full dose aspirin -PT/OT/ST evaluations have been performed -Neurology consultation was performed and case discussed with Dr. Castellano extensively. Recommending patient should follow-up with her summer babysitter in [place] for loop recorder. Dr. Castellano indicated patient can be discharged home on Plavix and increase to full dose aspirin. Patient should follow-up with her primary medical doctor and obtain neurologist in [facility] when she gets home today Elevated troponin -Could be demand ischemia from acute CVA, However patient does have history of coronary disease status post stenting and carotid bypass surgery. Patient is asymptomatic. Denies any chest pain, nausea, vomiting, diaphoresis, shortness of breath, dyspnea. -Patient cardiac enzymes were trended and appears to have plateaued with equivocal troponins of 0.08 -Initial EKG was reviewed by myself did show sinus rhythm with possible anterior myocardial infarction. Follow-up EKG shows sinus rhythm without any changes -Myocardial perfusion study was performed and indicated a small reversible perfusion defect in the lateral wall with normal ejection fraction -Store Leader consulted who indicated that in a patient with acute stroke intervention is contraindicated and recommending medical management and follow- up with her summer babysitter in [place] -Patient is on aspirin, Plavix, statin, beta-stephenie Coronary artery disease, heart disease -Home medications have been continued Diabetes -Hemoglobin A1c 9.6 -Diabetic diet -Accu-Cheks with sliding scale insulin DVT prevention -Sequential compression devices Discussed Condition With: Patient, nursing staff, Dr. Lu, Dr. Castellano Discharge Planning: Discharge home in stable condition Activity: Ad lynette. Diet: Healthy heart diet Medication per medication reconciliation Follow-up with primary medical doctor in 1 week, follow-up with neurologist in 2 weeks, patient should make appointment with her summer babysitter for further evaluation when she gets home to [place]
--- NOTE | 2018-05-31 13:07 | P.PNCA ---
Subjective Interval history: No events overnight Feels her speech is getting better Physical Exam Vital signs: Vital Signs 05/30/18 15:19 05/30/18 20:00 05/30/18 21:00 Temperature 96.5 F L 97.7 F Pulse Rate 85 97 H 86 Respiratory Rate 20 16 Blood Pressure 110/55 L 125/73 Pulse Oximetry 98 99 05/31/18 00:00 05/31/18 04:00 05/31/18 08:00 Temperature 98.1 F 97.4 F L 98.9 F Pulse Rate 72 80 80 Respiratory Rate 18 18 18 Blood Pressure 101/53 L 106/70 106/57 L Pulse Oximetry 97 98 96 Intake & Output 05/30/18 05/31/18 05/31/18 18:59 06:59 18:59 Intake Total 1480 / 1480 200 / 200 Balance 1480 / 1480 200 / 200 Intake: IV 1000 / 1000 Oral 480 / 480 200 / 200 Other: # Voids 3 2 # Bowel Movements 1 Narrative: GENERAL: Well-developed, well-nourished, in no acute distress. alert and orientated HEENT: Head is normocephalic without any lesions or masses noted. Patient with obvious left facial droop. Eyes:. Extraocular muscles are intact. Conjunctivae were clear. NECK: Supple without any masses. Trachea midline no deviation. No JVD, CARDIAC: Regular rhythm, regular rate. S1/S2 are heard. No murmurs gallops or rubs. LUNGS: Clear to auscultation bilaterally. No wheeze, rhonchi or rales. No use of accessory muscles on inspiration or expiration. ABDOMEN: Soft, nontender. Nondistended. Bowel sounds heard in all 4 quadrants. No organomegaly or masses. Negative rebound, negative guarding EXTREMITIES: No edema, pulses are equal bilaterally. No cyanosis or clubbing NEUROLOGY: left facial droop, speech more clear Assessment and Plan - Assessment (1) CVA (cerebrovascular accident) Code(s): I63.9 - Cerebral infarction, unspecified Status: Acute (2) Elevated troponin I level Code(s): R74.8 - Abnormal levels of other serum enzymes Status: Acute - Plan 1) Right frontal CVA Per Neuro PT/OT/speech therapy 2) Elevated troponin Asymptomatic Type 2 due to CVA Con't medical management 3) Abnormal stress test Read as small lateral ischemia Review of images shows a small lateral infarct Either way, she would be treated medically for this 4) Discussed consideration of NOVA and/or Loop recorder to help with determining cause She is from [place] and is to see her mechanic/welder up there next week Would prefer to have further work up up there as anything found here would need to be taken care of up there 5) Cardiovascularly stable for discharge
--- NOTE | 2018-06-01 08:39 | TR ---
Date Performed: 05/30/2018 Time Performed: 13:04:57 DOCTOR: Melita Quintero DRUG LIST: CLINICAL HISTORY: REASON FOR TEST: REASON FOR ENDING: OBSERVATION: CONCLUSION: Lexiscan stress test was performed under standard four minute protocol. Radionuclid e was injected one minute prior to ending the test. No electrocardiographic abormalities were present to suggest ischemia. Nuclear imaging and interpretation are pending. COMMENTS: No electrocardiographic abormalities were present to suggest ischemia. Nuclear imaging and interpretation are pending.
== END 2018-05-31 13:15 | disposition home or self-care (01) ==
LOC: PHED 19:44 → PHEDA 21:46 → PH3 23:51
PROVIDERS: ADMIT Hospitalist; ATTEND Hospitalist